=== PATIENT | male | born 1930 | race Caucasian/White ===

== ENCOUNTER → 2017-07-23 | Outpatient (CLI) | payer MEDICARE ==
[~2017-07-23] MED LIST: CART180C4 PO; CLOP75 PO; GEMF600T PO; LISI-363 PO; SIMV20TA PO; VIAG100T PO; VITA500015 PO
--- NOTE | 2017-07-28 14:46 | RSPPFT ---
DATE OF PROCEDURE: 07/23/17 COMMENTS: Spirometry with FVC of 4.8, FEV1 of 2.9, FEV1/FVC ratio at 61%. Slow vital capacity is 100% of predicted. TLC is 108%. Diffusion capacity is severely reduced. IMPRESSION: 1. Moderate airways obstruction. 2. Severe reduction in diffusion capacity. 3. Non-significant response to inhaled bronchodilator.
== END ==
LOC: HRSP 09:22
PROVIDERS: ATTEND Internal Medicine Interventional Cardiology
DX: I35.0 Nonrheumatic aortic (valve) stenosis (principal); R06.02 Shortness of breath; I34.0 Nonrheumatic mitral (valve) insufficiency; I65.23 Occlusion and stenosis of bilateral carotid arteries
CPT/HCPCS: 94060; 94726; 94729

== ENCOUNTER 2017-10-02 07:43 | Day surgery (SDC) | payer MEDICARE ==
[~2017-10-02] VITALS: Ht 172.7 cm; Wt 79.5 kg
[2017-10-02] VITALS (8 sets, daily range): BP systolic 100–137; BP diastolic 55–71; PULSE 58–66; RESP 16–18; TEMP 97.8–97.9; O2SAT 64–98
[2017-10-02] MEDS ORDERED: LIDOCAINE HCL 1% 10 ML VIAL OTHER ONE (07:44)
[2017-10-02] MEDS ORDERED: SIMV20TA PO (08:22)
[2017-10-02] MEDS ORDERED: WHEA1POW13 (08:22)
[2017-10-02] MEDS ORDERED: LOSA25TA PO (08:22)
[2017-10-02] MEDS ORDERED: MAGN250T11 PO (08:22)
[2017-10-02] MEDS ORDERED: ZINC220T PO (08:22)
[2017-10-02] MEDS ORDERED: IPRASOL INH (08:22)
[2017-10-02] MEDS ORDERED: BIOT10TA PO (08:22)
[2017-10-02] MEDS ORDERED: BETA0.056 TOPICAL (08:22)
[2017-10-02] MEDS ORDERED: CART120C PO (08:22)
[2017-10-02] MEDS ORDERED: ASPI-516 CHEW (08:22)
[2017-10-02] MEDS ORDERED: NYST15T TOPICAL (08:22)
[2017-10-02] MEDS ORDERED: MUPI2OIN TOPICAL (08:22)
[2017-10-02] MEDS ORDERED: CHOL5000 PO (08:22)
[2017-10-02] MEDS ORDERED: ZOLP5TAB3 PO (08:22)
[2017-10-02] MEDS ORDERED: VITA500T4 PO (08:22)
[2017-10-02] MEDS ORDERED: MIDAZOLAM HCL 2 MG/2 ML VIAL ONE (08:56)
[2017-10-02] MEDS ORDERED: SODIUM CHLOR 0.9% 1000 ML INJ 1,000 ML IV SCH (09:00)
--- NOTE | 2017-10-02 09:39 | PD.RAD ---
Post CT Procedure Prog Note Pre Procedure Diagnosis: (1) Lung nodule Post Procedure Diagnosis: (1) Lung nodule Procedure Date: October 02, 2017 Supervising Radiologist: Leoncio Gonzales Estimated blood loss: minimal. Anesthesia: Conscious Sedation Plan of Activity Patient to Unit: [facility] Patient Condition: Good See PACS Report for procedural detail/treatment Biopsy Imaging Guidance: CT Side: Right Biopsy Procedure: Lung Site: right upper lobe. Specimen: Core Biopsy Plan to [facility] for monitoring then discharge in four hours if criteria met Leoncio Gonzales MD October 02, 2017 09:39
[2017-10-02] MEDS ORDERED: oxyCODONE/ACETAMINOPHEN 5 MG/325 MG TAB PO PRN (09:45)
--- NOTE | 2017-10-02 09:54 | RADRPT ---
EXAM DATE/TIME: 10/02/2017 09:07 [facility] COMPARISON: No previous studies available for comparison. However, correlated with outside chest CT. INDICATIONS : Right upper lobe spiculated nodule. SEDATION TIME: 30 minutes BIOPSY SITE: Right upper lobe of the lung MEDICATION(S): 1.) 1.5 mg midazolam (Versed) IV 2.) 75 mcg fentanyl (Sublimaze) IV DEVICE(S): 1.) 20 gauge Temno core biopsy needle 2.) 18 gauge Capellan blunt needle MEDICAL HISTORY : Hypertension. Chronic obstructive pulmonary disease. Renal failure, chronic. skin cancer SURGICAL HISTORY : Appendectomy. ENCOUNTER: Initial ACUITY: 1 day PAIN SCORE: 0/10 LOCATION: Right A total of three core specimen(s) were obtained and sent to the laboratory for pathologic evaluation. PROCEDURE: 1. CT guided lung biopsy. 2. Conscious sedation with continuous EKG and oximetry monitoring. 3. EKG and oximetry remained stable throughout the procedure. Prior to the procedure informed consent was obtained. Any appropriate prior imaging studies were rev iewed. Using automated exposure control and adjustment of the mA and/or kV according to patient size, radiation dose was kept as low as reasonably achievable to obtain optimal diagnostic quality images. DICOM format image data is available electronically for review and comparison. The site was prepped in a sterile fashion. Full sterile technique was used, including cap, mask, kulwinder rile gloves and gown and a large sterile sheet. Hand hygiene and 2% chlorhexidine and/or betadine/al cohol prep was utilized per protocol for cutaneous antisepsis. The skin and subcutaneous tissues wer e infiltrated with local anesthetic solution. With CT guidance the right upper lobe lung nodule was localized. Biopsy was performed using the pres ribed needle as above. These machine long goods helper was present and reported that an adequate sample was o btained. Adequate hemostasis was obtained with compression at the puncture site. Follow-up CT scan reveals no pneumothorax. There is moderate perilesional hemorrhage. Conscious sedation was performed with the prescribed dosages and duration as above in the presence of an independent trained radiology nurse to assist in the monitoring of the patient. EKG and oximetry remained stable throughout the procedure. The patient tolerated the procedure well and there were no complications. The patient was sent to Radiology Outpatient Unit in stable condition. CONCLUSION: Uncomplicated CT guided biopsy of the right upper lobe lung nodule. Leoncio Gonzales MD on October 02, 2017 at 9:51 Board Certified Radiologist. This report was verified electronically.
--- NOTE | 2017-10-02 10:47 | RADRPT ---
EXAM DATE/TIME: 10/02/2017 10:18 [facility] COMPARISON: No previous studies available for comparison. INDICATIONS : Post right lung biopsy. MEDICAL HISTORY : Hypercholesterolemia. Hypertension Chronic obstructive pulmonary disease. Arthritis. SURGICAL HISTORY : Abdominal aortic aneurysm repair. Appendectomy. Stage III chronic kidney disease. ENCOUNTER: Subsequent ACUITY: 1 day PAIN SCORE: 0/10 LOCATION: Right chest FINDINGS: Upright expiratory view of the chest demonstrates a normal-sized cardiac silhouette with calcificatio n of the aorta. There is atelectasis at the lung bases. Consolidation is present in the right upper l obe representing hemorrhage from the recent lung nodule biopsy. No pneumothorax is visualized. Bones demonstrate no acute finding. CONCLUSION: No pneumothorax following lung nodule biopsy. There is persistent perilesional hemorrhage. Leoncio Gonzales MD on October 02, 2017 at 10:44 Board Certified Radiologist. This report was verified electronically.
--- NOTE | 2017-10-02 13:33 | RADRPT ---
EXAM DATE/TIME: 10/02/2017 13:16 [facility] COMPARISON: CHEST EXPIRATION ONLY, October 02, 2017, 10:18. INDICATIONS : Post right lung biopsy. MEDICAL HISTORY : Arthritis. Hypercholesterolemia. Hypertension Chronic obstructive pulmonary disease. SURGICAL HISTORY : Abdominal aortic aneurysm repair. Appendectomy. Stage III chronic kidney disease. ENCOUNTER: Initial ACUITY: 1 day PAIN SCORE: 0/10 LOCATION: Right chest FINDINGS: A single frontal expiratory view of the chest was performed. Redemonstration of minimal right upper l obe postprocedural hemorrhage. No evidence of pneumothorax. Mediastinal structures are in the midlin e. The cardio-mediastinal contours and bronchopulmonary markings are unremarkable for an expiratory exam . Osseous structures are intact. CONCLUSION: 1. No significant pneumothorax following right upper lobe lung biopsy. Ji Ferris MD on October 02, 2017 at 13:30 Board Certified Radiologist. This report was verified electronically.
== END 2017-10-02 13:59 | disposition home or self-care (01) ==
LOC: HRAD 07:43 → HRIP 07:46 → HRAD 13:59
PROVIDERS: ATTEND Internal Medicine
DX: R91.1 Solitary pulmonary nodule (principal); I12.9 Hypertensive chronic kidney disease with stage 1 through stage 4 chronic kidney disease, or unspecified chronic kidney disease; N18.3 Chronic kidney disease, stage 3 (moderate); J44.9 Chronic obstructive pulmonary disease, unspecified; E78.00 Pure hypercholesterolemia, unspecified; Z85.828 Personal history of other malignant neoplasm of skin
CPT/HCPCS: 32405; 71045; 77012; 88305; 88333; 99152; 99153; J2250; J3010; J7030